=== PATIENT | female | born 1975 | race Caucasian/White ===

== ENCOUNTER 2019-02-26 11:59 | Emergency (ER) | payer OTHER, MEDICAID ==
[2019-02-26] MEDS: IBUPROFEN 800 MG TAB PO (13:22)
== END 2019-02-26 14:17 | disposition home or self-care (01) ==
LOC: FTE 14:17
DX: J02.9 Acute pharyngitis, unspecified (principal); Z32.02 Encounter for pregnancy test, result negative
CPT/HCPCS: 81025; 99283